=== PATIENT | female | born 1955 | race African-American/Black ===

== ENCOUNTER 2017-10-17 21:42 | Emergency (ER) | payer OTHER ==
[~2017-10-17] VITALS: Ht 170.2 cm; Wt 128.0 kg
[2017-10-17] MEDS ORDERED: EPINEPHRINE 0.1MG/ML (1:10,000) 10ML SYR ONE ×2 (21:45→22:01)
[2017-10-17] MEDS ORDERED: CALCIUM CHLORIDE 1GM/10ML SYR IV ONE (21:45)
[2017-10-17] MEDS ORDERED: SODIUM BICARBONATE 7.5% 0.9 MEQ/ML 50ML SYR IV ONE (21:45)
[2017-10-17 22:02] VITALS: BP 0/0
== END 2017-10-18 00:50 | disposition expired ==
LOC: ER 21:42
DX: I46.9 Cardiac arrest, cause unspecified (principal); I10 Essential (primary) hypertension
CPT/HCPCS: 82962; 92950; 99285; J3490